=== PATIENT | female | born 1945 | race Caucasian/White ===

== ENCOUNTER 2020-03-04 15:02 | Observation (INO) ==
[2020-03-04 17:13] LABS: Basophils % 0.3 %; Eosinophils # 0.3 K/mcL (0.0-0.6); Eosinophils % 2.1 %; Hematocrit 41.7 % (35.3-44.9); Hemoglobin 13.3 g/dL (11.5-15.4); Immature Granulocytes % 0.6 % (0-4); Lymphocytes # 1.3 K/mcL (0.6-4.6); Lymphocytes % 9.6 %; Mean Corpuscular HGB Conc 31.9 g/dL (31.6-35.5); Mean Corpuscular Hemoglobin 26.3 pg (28.0-33.3); Mean Corpuscular Volume 82.6 fL (83.0-100.0); Mean Platelet Volume 10.7 fL (9.4-12.4); Monocytes # 1.2 K/mcL (0.0-1.3); Neutrophils # 10.3 K/mcL (1.6-8.9); Platelet Count 301 K/mcL (140-400); Red Blood Count 5.05 M/mcL (3.82-4.97); Red Cell Distribution Width 15.1 % (11.5-14.5); Segmented Neutrophils % 78.4 %; White Blood Count 13.2 K/mcL (4.3-11.1)
[2020-03-04 17:33] LABS: BUN/Creatinine Ratio 24 (6-26); Blood Urea Nitrogen 21 mg/dL (8-23); Calcium 10.1 mg/dL (8.6-10.3); Carbon Dioxide 28 mEq/L (23-29); Chloride 106 mEq/L (98-107); Glucose 76 mg/dL (70-105); Osmolality,Calculated 296 (280-300); Potassium 3.2 mEq/L (3.5-5.1); Sodium 142 mEq/L (136-145); eGFR For African Americans > 60 (> 60); eGFR For Non-African Americans > 60 (> 60)
[2020-03-04 17:37] LABS: Troponin I 0.04 ng/mL (< 0.04)
[2020-03-04] MEDS ORDERED: Furosemide 20 MG/2 ML VIAL IVP ONE (18:11)
[2020-03-04] MEDS ORDERED: Mag Hydrox/Al Hydrox/Simeth 30 ML UDC PO PRN (18:22)
[2020-03-04] MEDS ORDERED: Naloxone 0.4 MG/ML INJ IVP PRN (18:22)
[2020-03-04] MEDS ORDERED: Ondansetron ODT 4 MG TAB.RAPDIS SL PRN (18:22)
[2020-03-04] MEDS ORDERED: D5% in Water 1,000 ML IVC PRN (18:22)
[2020-03-04] MEDS ORDERED: *HR* Dextrose 50 % in Water (Vial) 50 ML VIAL IVP PRN (18:22)
[2020-03-04] MEDS ORDERED: Dextrose Gel 15 GM/37.5 ML TUBE PO PRN ×2 (18:22)
[2020-03-04] MEDS ORDERED: Acetaminophen 325 MG TABLET PO PRN (18:22)
[2020-03-04] MEDS ORDERED: MOM Conc 10 ML UD.LIQ PO PRN (18:22)
[2020-03-04] MEDS: Insulin LISPRO 300 UNITS/3 ML VIAL SQ SCH (21:58)
[2020-03-04] MEDS: Cholestyramine 4 GM POWD.PACK PO SCH (22:00)
[2020-03-04] MEDS: Insulin NPH/REG 70/30 100 UNIT/ML (x5UNIT) SQ SCH (22:00)
[2020-03-05] MEDS: *HR* Enoxaparin 40 MG/0.4 ML SYRINGE SQ SCH (05:00)
[2020-03-05 05:37] LABS: Hemoglobin 12.7 g/dL (11.5-15.4); Mean Corpuscular HGB Conc 31.8 g/dL (31.6-35.5); Mean Corpuscular Hemoglobin 26.5 pg (28.0-33.3); Mean Corpuscular Volume 83.3 fL (83.0-100.0); Mean Platelet Volume 10.8 fL (9.4-12.4); Platelet Count 258 K/mcL (140-400); White Blood Count 12.1 K/mcL (4.3-11.1)
[2020-03-05 05:58] LABS: BUN/Creatinine Ratio 22 (6-26); Blood Urea Nitrogen 20 mg/dL (8-23); Calcium 9.6 mg/dL (8.6-10.3); Carbon Dioxide 27 mEq/L (23-29); Chloride 102 mEq/L (98-107); Glucose 140 mg/dL (70-105); Magnesium 1.8 mg/dL (1.6-2.6); Osmolality,Calculated 293 (280-300); Potassium 3.1 mEq/L (3.5-5.1); Sodium 139 mEq/L (136-145); eGFR For African Americans > 60 (> 60); eGFR For Non-African Americans 59 (> 60)
[2020-03-05] MEDS: amLODIPine 5 MG TABLET PO SCH (08:10)
[2020-03-05] MEDS: Insulin NPH/REG 70/30 100 UNIT/ML (x5UNIT) SQ SCH ×2 (08:10→16:04)
[2020-03-05] MEDS: Cholestyramine 4 GM POWD.PACK PO SCH ×2 (08:10→21:00)
[2020-03-05] MEDS: Aspirin 81 MG TAB.CHEW PO SCH (08:10)
[2020-03-05] MEDS: Losartan/HCTZ 50-12.5 TABLET PO SCH (08:11)
[2020-03-05] MEDS: Insulin LISPRO 300 UNITS/3 ML VIAL SQ SCH ×4 (08:45→21:24)
[2020-03-05] MEDS ORDERED: Furosemide 20 MG/2 ML VIAL IVP ONE (09:00)
[2020-03-05] MEDS ORDERED: Melatonin 3 MG TABLET PO PRN (21:28)
[2020-03-05] MEDS: Benzonatate 100 MG CAPSULE PO PRN (23:26)
[2020-03-06 02:11] LABS: Basophils # 0.1 K/mcL (0.0-0.2); Basophils % 0.4 %; Eosinophils # 0.3 K/mcL (0.0-0.6); Eosinophils % 2.2 %; Hematocrit 40.5 % (35.3-44.9); Hemoglobin 12.8 g/dL (11.5-15.4); Immature Granulocytes % 0.5 % (0-4); Lymphocytes % 7.4 %; Mean Corpuscular HGB Conc 31.6 g/dL (31.6-35.5); Mean Corpuscular Hemoglobin 26.6 pg (28.0-33.3); Mean Corpuscular Volume 84.2 fL (83.0-100.0); Mean Platelet Volume 10.6 fL (9.4-12.4); Monocytes # 1.1 K/mcL (0.0-1.3); Monocytes % 8.3 %; Neutrophils # 10.7 K/mcL (1.6-8.9); Platelet Count 245 K/mcL (140-400); Red Blood Count 4.81 M/mcL (3.82-4.97); Segmented Neutrophils % 81.2 %; White Blood Count 13.2 K/mcL (4.3-11.1)
[2020-03-06 02:35] LABS: BUN/Creatinine Ratio 23 (6-26); Blood Urea Nitrogen 22 mg/dL (8-23); Calcium 9.3 mg/dL (8.6-10.3); Carbon Dioxide 24 mEq/L (23-29); Chloride 101 mEq/L (98-107); Glucose 147 mg/dL (70-105); Osmolality,Calculated 288 (280-300); Potassium 3.5 mEq/L (3.5-5.1); Sodium 136 mEq/L (136-145); eGFR For African Americans > 60 (> 60); eGFR For Non-African Americans 56 (> 60)
[2020-03-06] MEDS: *HR* Enoxaparin 40 MG/0.4 ML SYRINGE SQ SCH (05:04)
[2020-03-06] MEDS: Losartan/HCTZ 50-12.5 TABLET PO SCH (08:17)
[2020-03-06] MEDS: Cholestyramine 4 GM POWD.PACK PO SCH ×2 (08:17→20:52)
[2020-03-06] MEDS: amLODIPine 5 MG TABLET PO SCH (08:17)
[2020-03-06] MEDS: Aspirin 81 MG TAB.CHEW PO SCH (08:18)
[2020-03-06] MEDS: Insulin NPH/REG 70/30 100 UNIT/ML (x5UNIT) SQ SCH ×2 (08:18→17:33)
[2020-03-06] MEDS: Insulin LISPRO 300 UNITS/3 ML VIAL SQ SCH ×4 (08:42→21:01)
[2020-03-06] MEDS ORDERED: Furosemide 20 MG/2 ML VIAL IVP SCH (09:00)
[2020-03-07 01:14] LABS: Basophils # 0.1 K/mcL (0.0-0.2); Basophils % 0.5 %; Eosinophils # 0.3 K/mcL (0.0-0.6); Eosinophils % 2.5 %; Hematocrit 42.4 % (35.3-44.9); Hemoglobin 13.7 g/dL (11.5-15.4); Lymphocytes # 1.3 K/mcL (0.6-4.6); Lymphocytes % 10.4 %; Mean Corpuscular HGB Conc 32.3 g/dL (31.6-35.5); Mean Corpuscular Hemoglobin 26.5 pg (28.0-33.3); Neutrophils # 9.8 K/mcL (1.6-8.9); Platelet Count 290 K/mcL (140-400); Red Blood Count 5.17 M/mcL (3.82-4.97); Segmented Neutrophils % 77.6 %; White Blood Count 12.5 K/mcL (4.3-11.1)
[2020-03-07 01:25] LABS: BUN/Creatinine Ratio 26 (6-26); Blood Urea Nitrogen 28 mg/dL (8-23); Calcium 9.7 mg/dL (8.6-10.3); Carbon Dioxide 25 mEq/L (23-29); Chloride 101 mEq/L (98-107); Glucose 125 mg/dL (70-105); Osmolality,Calculated 289 (280-300); Sodium 136 mEq/L (136-145); eGFR For African Americans > 60 (> 60); eGFR For Non-African Americans 51 (> 60)
[2020-03-07] MEDS: *HR* Enoxaparin 40 MG/0.4 ML SYRINGE SQ SCH (06:22)
[2020-03-07] MEDS: Insulin LISPRO 300 UNITS/3 ML VIAL SQ SCH ×3 (09:16→16:03)
[2020-03-07] MEDS: Aspirin 81 MG TAB.CHEW PO SCH (09:29)
[2020-03-07] MEDS: Cholestyramine 4 GM POWD.PACK PO SCH ×2 (09:29→19:51)
[2020-03-07] MEDS: amLODIPine 5 MG TABLET PO SCH (09:29)
[2020-03-07] MEDS: Furosemide 40 MG TABLET PO SCH (09:29)
[2020-03-07] MEDS: Losartan/HCTZ 50-12.5 TABLET PO SCH (09:29)
[2020-03-07] MEDS: Insulin NPH/REG 70/30 100 UNIT/ML (x5UNIT) SQ SCH ×2 (09:30→16:04)
[2020-03-07] MEDS ORDERED: Insulin LISPRO 300 UNITS/3 ML VIAL SQ SCH (14:15)
[2020-03-07] MEDS: Benzonatate 100 MG CAPSULE PO PRN (19:55)
[2020-03-08] MEDS ORDERED: *HR* Labetalol 20 MG/4 ML SYRINGE IVP ONE (01:08)
[2020-03-08] MEDS: *HR* Enoxaparin 40 MG/0.4 ML SYRINGE SQ SCH (05:24)
[2020-03-08] MEDS: Insulin LISPRO 300 UNITS/3 ML VIAL SQ SCH ×2 (07:39→11:22)
[2020-03-08] MEDS: Insulin NPH/REG 70/30 100 UNIT/ML (x5UNIT) SQ SCH (07:47)
[2020-03-08] MEDS: Aspirin 81 MG TAB.CHEW PO SCH (07:48)
[2020-03-08] MEDS: Losartan/HCTZ 50-12.5 TABLET PO SCH (07:49)
[2020-03-08] MEDS: Cholestyramine 4 GM POWD.PACK PO SCH (07:50)
[2020-03-08] MEDS: Furosemide 40 MG TABLET PO SCH (07:50)
[2020-03-08] MEDS: amLODIPine 5 MG TABLET PO SCH (07:50)
[2020-03-08 10:53] VITALS: BP 161/78
== END 2020-03-08 15:27 | disposition home or self-care (01) ==
LOC: 2NENU 15:02 → EMEROOARM 15:02 → SUATTDRO 20:07 → 2NENU 21:33 → 2ANU 03-06 22:24
PROVIDERS: ADMIT Internal Medicine; ATTEND Internal Medicine

== ENCOUNTER 2022-01-23 19:59 | Observation (INO) ==
[2022-01-23 20:49] LABS: Basophils # 0.1 K/mcL (0.0-0.2); Basophils % 0.6 %; Eosinophils # 0.1 K/mcL (0.0-0.6); Eosinophils % 1.5 %; Hemoglobin 12.7 g/dL (11.5-15.4); Lymphocytes # 0.7 K/mcL (0.6-4.6); Mean Corpuscular HGB Conc 31.8 g/dL (31.6-35.5); Mean Corpuscular Hemoglobin 26.1 pg (28.0-33.3); Mean Corpuscular Volume 82.1 fL (83.0-100.0); Mean Platelet Volume 10.5 fL (9.4-12.4); Monocytes # 0.8 K/mcL (0.0-1.3); Monocytes % 8.9 %; Neutrophils # 7.3 K/mcL (1.6-8.9); Platelet Count 190 K/mcL (140-400); Red Blood Count 4.87 M/mcL (3.82-4.97); Red Cell Distribution Width 17.2 % (11.5-14.5); White Blood Count 9.1 K/mcL (4.3-11.1)
[2022-01-23 20:58] LABS: INR 1.1; Prothrombin Time 12.2 Seconds (9.4-12.1)
[2022-01-23 21:01] LABS: Activated Partial Thrombo Time 28.6 Seconds (26.0-36.0)
[2022-01-23 21:08] LABS: Potassium 5.1 mEq/L (3.5-5.1)
[2022-01-23] MEDS ORDERED: *HR* Heparin 5,000 UNIT/ML VIAL IVP PRN ×2 (22:21)
[2022-01-23] MEDS ORDERED: *HR* Heparin 5,000 UNIT/ML VIAL IVP ONE (22:21)
[2022-01-23 22:46] LABS: Heparin anti-factor XA UFH < 0.04 IU/mL (0.30-0.70)
[2022-01-23 22:47] LABS: INR 1.1; Prothrombin Time 12.1 Seconds (9.4-12.1)
[2022-01-23] MEDS: Heparin 25,000UNIT/250ML 1/2NS 25,000 UNIT/250 ML IV.SOLN IVC SCH (22:53)
[2022-01-23 23:12] LABS: Hematocrit 37.8 % (35.3-44.9); Hemoglobin 12.1 g/dL (11.5-15.4); Mean Corpuscular Hemoglobin 26.4 pg (28.0-33.3); Mean Corpuscular Volume 82.4 fL (83.0-100.0); Platelet Count 224 K/mcL (140-400); Red Blood Count 4.59 M/mcL (3.82-4.97); Red Cell Distribution Width 17.2 % (11.5-14.5); White Blood Count 10.8 K/mcL (4.3-11.1)
[2022-01-23] MEDS ORDERED: 0.9 % Sodium Chloride 1,000 ML IVC SCH (23:45)
[2022-01-23] MEDS ORDERED: Naloxone 0.4 MG/ML INJ IVP PRN (23:55)
[2022-01-23] MEDS ORDERED: Acetaminophen 325 MG TABLET PO PRN (23:55)
[2022-01-23] MEDS ORDERED: Melatonin 3 MG TABLET PO PRN (23:55)
[2022-01-23] MEDS ORDERED: Ondansetron 4 MG/2 ML VIAL IVP PRN (23:55)
[2022-01-24] MEDS ORDERED: Dextrose 4 GM Chewable Tablets PO PRN ×2 (00:16)
[2022-01-24] MEDS ORDERED: *HR* Dextrose 50 % in Water (Syg) 50 ML SYRINGE IVP PRN (00:16)
[2022-01-24] MEDS ORDERED: D5% in Water 1,000 ML IVC PRN (00:16)
[2022-01-24 00:22] LABS: D-Dimer 16119 ng/mLFEU (0-500)
[2022-01-24] MEDS: Insulin LISPRO 300 UNITS/3 ML VIAL SUBQ SCH ×4 (00:29→16:10)
[2022-01-24 01:38] LABS: Calcium 9.6 mg/dL (8.6-10.3); Potassium 4.5 mEq/L (3.5-5.1)
[2022-01-24] MEDS: Clindamycin 600 MG/50 ML 600 MG/50 ML IV.SOLN IVPB SCH ×3 (07:16→21:55)
[2022-01-24] MEDS: Heparin 25,000UNIT/250ML 1/2NS 25,000 UNIT/250 ML IV.SOLN IVC SCH (21:56)
[2022-01-25] MEDS: Clindamycin 600 MG/50 ML 600 MG/50 ML IV.SOLN IVPB SCH ×3 (06:01→21:41)
[2022-01-25] MEDS ORDERED: Fluticasone Propionate Nasal 50 MCG/SPRAY BOTTLE NS PRN (07:20)
[2022-01-25 08:46] LABS: Calcium 9.3 mg/dL (8.6-10.3); Potassium 4.7 mEq/L (3.5-5.1)
[2022-01-25] MEDS: Spironolactone 25 MG TABLET PO SCH (09:31)
[2022-01-25] MEDS: Metoprolol XL (24 HR) Succ 50 MG TAB.ER.24H PO SCH (09:31)
[2022-01-25] MEDS: Lactobacillus 1 EACH CAP.SPRINK PO SCH (09:31)
[2022-01-25] MEDS: amLODIPine 5 MG TABLET PO SCH (09:31)
[2022-01-25] MEDS: Aspirin 81 MG TAB.CHEW PO SCH (09:31)
[2022-01-25] MEDS: Insulin LISPRO 300 UNITS/3 ML VIAL SUBQ SCH ×3 (09:32→17:14)
[2022-01-25] MEDS: Apixaban 5 MG TABLET PO SCH ×2 (13:47→21:41)
[2022-01-26 01:45] LABS: Calcium 9.5 mg/dL (8.6-10.3)
[2022-01-26] MEDS: Clindamycin 600 MG/50 ML 600 MG/50 ML IV.SOLN IVPB SCH (05:25)
[2022-01-26] MEDS: Metoprolol XL (24 HR) Succ 50 MG TAB.ER.24H PO SCH (08:01)
[2022-01-26] MEDS: Spironolactone 25 MG TABLET PO SCH (08:02)
[2022-01-26] MEDS: Insulin LISPRO 300 UNITS/3 ML VIAL SUBQ SCH ×2 (08:02→11:41)
[2022-01-26] MEDS: Lactobacillus 1 EACH CAP.SPRINK PO SCH (08:02)
[2022-01-26] MEDS: Aspirin 81 MG TAB.CHEW PO SCH (08:02)
[2022-01-26] MEDS: Apixaban 5 MG TABLET PO SCH (08:02)
[2022-01-26] MEDS: amLODIPine 5 MG TABLET PO SCH (08:02)
[2022-01-26 12:43] VITALS: BP 147/83; PULSE 69; TEMP 98.6; O2SAT 96
== END 2022-01-26 15:27 | disposition home health service (06) ==
LOC: 2ANU 19:59 → EMEROOARM 19:59 → 2ANU 23:26
PROVIDERS: ADMIT Student in an Organized Health Care Education/Training Program; ATTEND Student in an Organized Health Care Education/Training Program

== ENCOUNTER 2022-02-07 10:30 | Inpatient (IN) ==
[2022-02-07 11:58] LABS: Basophils % 0.5 %; Eosinophils # 0.1 K/mcL (0.0-0.6); Eosinophils % 1.6 %; Hematocrit 42.1 % (35.3-44.9); Lymphocytes # 0.7 K/mcL (0.6-4.6); Lymphocytes % 8.4 %; Mean Corpuscular HGB Conc 30.9 g/dL (31.6-35.5); Mean Corpuscular Hemoglobin 26.3 pg (28.0-33.3); Mean Corpuscular Volume 85.1 fL (83.0-100.0); Mean Platelet Volume 10.7 fL (9.4-12.4); Monocytes # 0.6 K/mcL (0.0-1.3); Monocytes % 7.4 %; Neutrophils # 6.7 K/mcL (1.6-8.9); Platelet Count 331 K/mcL (140-400); Red Blood Count 4.95 M/mcL (3.82-4.97); Red Cell Distribution Width 16.4 % (11.5-14.5); Segmented Neutrophils % 81.1 %; White Blood Count 8.3 K/mcL (4.3-11.1)
[2022-02-07 12:06] LABS: INR 1.7; Prothrombin Time 19.1 Seconds (9.4-12.1)
[2022-02-07 12:08] LABS: Activated Partial Thrombo Time 40.9 Seconds (26.0-36.0)
[2022-02-07 12:14] LABS: Calcium 10.7 mg/dL (8.6-10.3); Potassium 4.5 mEq/L (3.5-5.1)
[2022-02-07] MEDS ORDERED: *HR* Heparin 5,000 UNIT/ML VIAL IVP PRN (13:30)
[2022-02-07] MEDS ORDERED: Heparin 25,000UNIT/250ML 1/2NS 25,000 UNIT/250 ML IV.SOLN IVC SCH (13:30)
[2022-02-07] MEDS ORDERED: Naloxone 0.4 MG/ML INJ IVP PRN (13:39)
[2022-02-07] MEDS ORDERED: Dextrose Gel 15 GM/37.5 ML TUBE PO PRN ×2 (13:40)
[2022-02-07] MEDS ORDERED: D5% in Water 1,000 ML IVC PRN ×2 (13:40→13:54)
[2022-02-07] MEDS ORDERED: *HR* Dextrose 50 % in Water (Syg) 50 ML SYRINGE IVP PRN (13:40)
[2022-02-07] MEDS ORDERED: 0.9 % Sodium Chloride 1,000 ML IVC SCH (13:45)
[2022-02-07] MEDS: Heparin 25,000UNIT/250ML 1/2NS 25,000 UNIT/250 ML IV.SOLN IVC SCH (13:54)
[2022-02-07] MEDS ORDERED: Fluticasone Propionate Nasal 50 MCG/SPRAY BOTTLE NS PRN (14:25)
[2022-02-07] MEDS ORDERED: *HR* HYDROcodone/Acet 5/325 mg TABLET PO PRN (14:42)
[2022-02-07] MEDS: 0.9 % Sodium Chloride 1,000 ML IVC SCH (16:39)
[2022-02-07] MEDS: Piperacillin/Tazobactam 3.375 GM in 0.9 % Sodium Chloride Mini Bag 100 ML IVPB SCH (16:40)
[2022-02-07 16:48] LABS: Hematocrit 41.1 % (35.3-44.9); Hemoglobin 12.6 g/dL (11.5-15.4); Mean Corpuscular HGB Conc 30.7 g/dL (31.6-35.5); Mean Corpuscular Volume 84.7 fL (83.0-100.0); Mean Platelet Volume 10.7 fL (9.4-12.4); Platelet Count 367 K/mcL (140-400); Red Blood Count 4.85 M/mcL (3.82-4.97); Red Cell Distribution Width 16.4 % (11.5-14.5); White Blood Count 8.9 K/mcL (4.3-11.1)
[2022-02-07] MEDS: Insulin LISPRO 300 UNITS/3 ML VIAL SUBQ SCH ×2 (16:53→21:25)
[2022-02-07 17:02] LABS: Activated Partial Thrombo Time 56.4 Seconds (26.0-36.0); INR 1.7; Prothrombin Time 19.1 Seconds (9.4-12.1)
[2022-02-07 17:05] LABS: Heparin anti-factor XA UFH > 2.00 IU/mL (0.30-0.70)
[2022-02-07] MEDS: *HR* Heparin 5,000 UNIT/ML VIAL IVP PRN (17:16)
[2022-02-07] MEDS ORDERED: *HR* Warfarin 5 MG TABLET PO ONE (18:00)
[2022-02-07] MEDS ORDERED: Warfarin perPT PO PRN (18:00)
[2022-02-07] MEDS: Doxycycline 100 MG CAPSULE PO SCH (21:34)
[2022-02-08] MEDS: Piperacillin/Tazobactam 3.375 GM in 0.9 % Sodium Chloride Mini Bag 100 ML IVPB SCH ×2 (01:24→08:39)
[2022-02-08 07:06] LABS: Basophils # 0.1 K/mcL (0.0-0.2); Basophils % 0.8 %; Eosinophils # 0.2 K/mcL (0.0-0.6); Eosinophils % 1.9 %; Hematocrit 36.5 % (35.3-44.9); Hemoglobin 11.1 g/dL (11.5-15.4); Immature Granulocytes % 0.8 % (0-4); Lymphocytes # 1.1 K/mcL (0.6-4.6); Lymphocytes % 14.2 %; Mean Corpuscular HGB Conc 30.4 g/dL (31.6-35.5); Mean Corpuscular Hemoglobin 25.5 pg (28.0-33.3); Mean Corpuscular Volume 83.7 fL (83.0-100.0); Mean Platelet Volume 10.8 fL (9.4-12.4); Monocytes # 0.7 K/mcL (0.0-1.3); Monocytes % 8.6 %; Neutrophils # 5.8 K/mcL (1.6-8.9); Platelet Count 298 K/mcL (140-400); Red Blood Count 4.36 M/mcL (3.82-4.97); Red Cell Distribution Width 16.4 % (11.5-14.5); Segmented Neutrophils % 73.7 %; White Blood Count 7.9 K/mcL (4.3-11.1)
[2022-02-08 07:16] LABS: INR 1.4; Prothrombin Time 15.9 Seconds (9.4-12.1)
[2022-02-08] MEDS: 0.9 % Sodium Chloride 1,000 ML IVC SCH ×2 (07:21→17:03)
[2022-02-08 07:47] LABS: Calcium 9.7 mg/dL (8.6-10.3); Magnesium 1.7 mg/dL (1.6-2.6); Phosphorous 3.7 mg/dL (2.7-4.5); Potassium 4.8 mEq/L (3.5-5.1)
[2022-02-08] MEDS: Insulin LISPRO 300 UNITS/3 ML VIAL SUBQ SCH ×4 (08:17→21:54)
[2022-02-08] MEDS: amLODIPine 5 MG TABLET PO SCH (08:18)
[2022-02-08] MEDS: Doxycycline 100 MG CAPSULE PO SCH (08:19)
[2022-02-08] MEDS: Aspirin 81 MG TAB.CHEW PO SCH (08:19)
[2022-02-08] MEDS: Metoprolol XL (24 HR) Succ 50 MG TAB.ER.24H PO SCH (08:19)
[2022-02-08] MEDS: Cyanocobalamin (B-12) 1,000 MCG TABLET PO SCH (08:19)
[2022-02-08] MEDS ORDERED: Furosemide 20 MG TABLET PO SCH (09:00)
[2022-02-08] MEDS ORDERED: Spironolactone 25 MG TABLET PO SCH (09:00)
[2022-02-08] MEDS: Heparin 25,000UNIT/250ML 1/2NS 25,000 UNIT/250 ML IV.SOLN IVC SCH (11:19)
[2022-02-08] MEDS ORDERED: cephALEXin 500 MG CAPSULE PO SCH (13:00)
[2022-02-08] MEDS: cephALEXin 500 MG CAPSULE PO SCH ×2 (15:41→21:58)
[2022-02-08] MEDS ORDERED: *HR* Warfarin 5 MG TABLET PO ONE (18:00)
[2022-02-09 05:43] LABS: INR 1.3; Prothrombin Time 14.7 Seconds (9.4-12.1)
[2022-02-09 06:02] LABS: Calcium 9.7 mg/dL (8.6-10.3); Magnesium 1.5 mg/dL (1.6-2.6); Phosphorous 3.7 mg/dL (2.7-4.5); Potassium 4.2 mEq/L (3.5-5.1)
[2022-02-09] MEDS: 0.9 % Sodium Chloride 1,000 ML IVC SCH ×2 (06:47→20:12)
[2022-02-09] MEDS: Metoprolol XL (24 HR) Succ 50 MG TAB.ER.24H PO SCH (09:00)
[2022-02-09] MEDS: Cyanocobalamin (B-12) 1,000 MCG TABLET PO SCH (09:00)
[2022-02-09] MEDS: cephALEXin 500 MG CAPSULE PO SCH ×2 (09:00→20:13)
[2022-02-09] MEDS: amLODIPine 5 MG TABLET PO SCH (09:00)
[2022-02-09] MEDS: Aspirin 81 MG TAB.CHEW PO SCH (09:00)
[2022-02-09] MEDS: Insulin LISPRO 300 UNITS/3 ML VIAL SUBQ SCH ×4 (09:00→20:14)
[2022-02-09] MEDS: Heparin 25,000UNIT/250ML 1/2NS 25,000 UNIT/250 ML IV.SOLN IVC SCH (09:01)
[2022-02-09 10:58] LABS: Adenovirus F 40/41 PCR Not detected (Not detect); Astrovirus PCR Not detected (Not detect); C.difficile Toxin A/B Gene PCR Not detected (Not detect); Campylobacter by PCR Not detected (Not detect); Cryptosporidium by PCR Not detected (Not detect); Cyclospora cayetanensis PCR Not detected (Not detect); Entamoeba histolytica PCR Not detected (Not detect); Enteroaggregative E.coli(EAEC) Not detected (Not detect); Enteropathogenic E.coli(EPEC) Not detected (Not detect); Enterotoxigenic E.coli (ETEC) Not detected (Not detect); Giardia lamblia PCR Not detected (Not detect); Norovirus GI/GII PCR Not detected (Not detect); Plesiomonas shigelloides PCR Not detected (Not detect); Rotavirus A PCR Not detected (Not detect); Salmonella PCR Not detected (Not detect); Sapovirus PCR Not detected (Not detect); Shig/EnteroinvasiveE coli EIEC Not detected (Not detect); Shigalike tox-prod E coli STEC Not detected (Not detect); Vibrio PCR Not detected (Not detect); Vibrio cholerae PCR Not detected (Not detect); Yersinia enterocolitica PCR Not detected (Not detect)
[2022-02-09] MEDS ORDERED: *HR* Warfarin 7.5 MG TABLET PO ONE (18:00)
[2022-02-09] MEDS: Insulin NPH/REG 70/30 100 UNIT/ML (x5UNIT) SUBQ SCH (20:13)
[2022-02-09] MEDS ORDERED: *HR* Metoprolol 5 MG/5 ML VIAL IVP ONE (22:41)
[2022-02-10 02:45] LABS: INR 1.3; Prothrombin Time 14.2 Seconds (9.4-12.1)
[2022-02-10 02:48] LABS: Calcium 10.2 mg/dL (8.6-10.3); Magnesium 1.7 mg/dL (1.6-2.6); Phosphorous 2.9 mg/dL (2.7-4.5); Potassium 4.3 mEq/L (3.5-5.1)
[2022-02-10] MEDS: *HR* Heparin 5,000 UNIT/ML VIAL IVP PRN (04:07)
[2022-02-10] MEDS: Insulin LISPRO 300 UNITS/3 ML VIAL SUBQ SCH ×4 (09:52→20:35)
[2022-02-10] MEDS: Metoprolol XL (24 HR) Succ 50 MG TAB.ER.24H PO SCH (10:02)
[2022-02-10] MEDS: cephALEXin 500 MG CAPSULE PO SCH ×2 (10:02→20:49)
[2022-02-10] MEDS: Cyanocobalamin (B-12) 1,000 MCG TABLET PO SCH (10:02)
[2022-02-10] MEDS: amLODIPine 5 MG TABLET PO SCH (10:02)
[2022-02-10] MEDS: Aspirin 81 MG TAB.CHEW PO SCH (10:02)
[2022-02-10] MEDS: Insulin NPH/REG 70/30 100 UNIT/ML (x5UNIT) SUBQ SCH ×2 (10:04→20:35)
[2022-02-10] MEDS: 0.9 % Sodium Chloride 1,000 ML IVC SCH ×2 (10:07→23:36)
[2022-02-10] MEDS: Heparin 25,000UNIT/250ML 1/2NS 25,000 UNIT/250 ML IV.SOLN IVC SCH (10:08)
[2022-02-10] MEDS ORDERED: amLODIPine 5 MG TABLET PO ONE (12:56)
[2022-02-10] MEDS ORDERED: *HR* Metoprolol 5 MG/5 ML VIAL IVP ONE (12:57)
[2022-02-10] MEDS ORDERED: *HR* Warfarin 7.5 MG TABLET PO ONE (18:00)
[2022-02-11 02:59] LABS: INR 1.7; Prothrombin Time 18.9 Seconds (9.4-12.1)
[2022-02-11] MEDS: Heparin 25,000UNIT/250ML 1/2NS 25,000 UNIT/250 ML IV.SOLN IVC SCH (06:43)
[2022-02-11] MEDS: Insulin LISPRO 300 UNITS/3 ML VIAL SUBQ SCH ×4 (09:10→20:38)
[2022-02-11] MEDS: cephALEXin 500 MG CAPSULE PO SCH ×2 (09:18→20:37)
[2022-02-11] MEDS: Cyanocobalamin (B-12) 1,000 MCG TABLET PO SCH (09:18)
[2022-02-11] MEDS: Aspirin 81 MG TAB.CHEW PO SCH (09:18)
[2022-02-11] MEDS: Metoprolol XL (24 HR) Succ 50 MG TAB.ER.24H PO SCH (09:18)
[2022-02-11] MEDS: amLODIPine 5 MG TABLET PO SCH (09:19)
[2022-02-11] MEDS: Insulin NPH/REG 70/30 100 UNIT/ML (x5UNIT) SUBQ SCH ×2 (09:19→20:38)
[2022-02-11] MEDS: predniSONE 20 MG TABLET PO SCH (10:38)
[2022-02-11] MEDS: 0.9 % Sodium Chloride 1,000 ML IVC SCH (13:19)
[2022-02-11] MEDS ORDERED: *HR* Warfarin 5 MG TABLET PO ONE (18:00)
[2022-02-12] MEDS: 0.9 % Sodium Chloride 1,000 ML IVC SCH (02:41)
[2022-02-12] MEDS: Heparin 25,000UNIT/250ML 1/2NS 25,000 UNIT/250 ML IV.SOLN IVC SCH (04:40)
[2022-02-12] MEDS: Aspirin 81 MG TAB.CHEW PO SCH (09:06)
[2022-02-12] MEDS: amLODIPine 5 MG TABLET PO SCH (09:06)
[2022-02-12] MEDS: Metoprolol XL (24 HR) Succ 50 MG TAB.ER.24H PO SCH (09:06)
[2022-02-12] MEDS: predniSONE 20 MG TABLET PO SCH (09:07)
[2022-02-12] MEDS: Cyanocobalamin (B-12) 1,000 MCG TABLET PO SCH (09:07)
[2022-02-12] MEDS: cephALEXin 500 MG CAPSULE PO SCH ×2 (09:07→20:13)
[2022-02-12] MEDS: Insulin NPH/REG 70/30 100 UNIT/ML (x5UNIT) SUBQ SCH ×2 (09:12→20:13)
[2022-02-12] MEDS: Insulin LISPRO 300 UNITS/3 ML VIAL SUBQ SCH ×4 (09:14→20:15)
[2022-02-12 09:35] LABS: INR 2.3; Prothrombin Time 25.2 Seconds (9.4-12.1)
[2022-02-12] MEDS ORDERED: Furosemide 40 MG/4 ML VIAL IVP ONE (10:03)
[2022-02-12] MEDS ORDERED: *HR* Warfarin 7.5 MG TABLET PO ONE (18:00)
[2022-02-13 06:17] LABS: INR 2.5; Prothrombin Time 27.6 Seconds (9.4-12.1)
[2022-02-13] MEDS: Insulin LISPRO 300 UNITS/3 ML VIAL SUBQ SCH ×4 (07:40→21:37)
[2022-02-13] MEDS: Furosemide 40 MG TABLET PO SCH (07:57)
[2022-02-13] MEDS: Cyanocobalamin (B-12) 1,000 MCG TABLET PO SCH (07:57)
[2022-02-13] MEDS: amLODIPine 5 MG TABLET PO SCH (07:58)
[2022-02-13] MEDS: Aspirin 81 MG TAB.CHEW PO SCH (07:58)
[2022-02-13] MEDS: cephALEXin 500 MG CAPSULE PO SCH ×2 (07:58→21:36)
[2022-02-13] MEDS: Metoprolol XL (24 HR) Succ 50 MG TAB.ER.24H PO SCH (07:58)
[2022-02-13] MEDS: predniSONE 20 MG TABLET PO SCH (08:00)
[2022-02-13] MEDS: Insulin NPH/REG 70/30 100 UNIT/ML (x5UNIT) SUBQ SCH ×2 (09:27→21:36)
[2022-02-13] MEDS ORDERED: Metoprolol XL (24 HR) Succ 50 MG TAB.ER.24H PO ONE (11:37)
[2022-02-13] MEDS ORDERED: *HR* Warfarin 5 MG TABLET PO ONE (18:00)
[2022-02-14 04:59] LABS: INR 3.1; Prothrombin Time 34.1 Seconds (9.4-12.1)
[2022-02-14] MEDS: amLODIPine 5 MG TABLET PO SCH (08:34)
[2022-02-14] MEDS: Aspirin 81 MG TAB.CHEW PO SCH (08:34)
[2022-02-14] MEDS: cephALEXin 500 MG CAPSULE PO SCH ×2 (08:34→23:31)
[2022-02-14] MEDS: predniSONE 20 MG TABLET PO SCH (08:34)
[2022-02-14] MEDS: Metoprolol XL (24 HR) Succ 50 MG TAB.ER.24H PO SCH (08:34)
[2022-02-14] MEDS: Furosemide 40 MG TABLET PO SCH (08:34)
[2022-02-14] MEDS: Insulin NPH/REG 70/30 100 UNIT/ML (x5UNIT) SUBQ SCH ×2 (08:34→23:19)
[2022-02-14] MEDS: Cyanocobalamin (B-12) 1,000 MCG TABLET PO SCH (08:34)
[2022-02-14] MEDS: Insulin LISPRO 300 UNITS/3 ML VIAL SUBQ SCH ×4 (08:37→23:18)
[2022-02-14] MEDS ORDERED: Furosemide 20 MG/2 ML VIAL IVP ONE (15:43)
[2022-02-14] MEDS: Albumin 25% 25gram/100mL 25 GM/100 ML IV.SOLN IVPB SCH (17:28)
[2022-02-14] MEDS: Azithromycin 250 MG TABLET PO SCH (17:35)
[2022-02-14] MEDS ORDERED: *HR* Warfarin 2.5 MG TABLET PO ONE (18:00)
[2022-02-15] MEDS: Albumin 25% 25gram/100mL 25 GM/100 ML IV.SOLN IVPB SCH ×3 (01:33→16:30)
[2022-02-15 05:35] LABS: Basophils # 0.1 K/mcL (0.0-0.2); Basophils % 0.5 %; Eosinophils % 0.2 %; Hematocrit 37.9 % (35.3-44.9); Hemoglobin 11.7 g/dL (11.5-15.4); Immature Granulocytes % 1.7 % (0-4); Lymphocytes # 0.9 K/mcL (0.6-4.6); Lymphocytes % 7.1 %; Mean Corpuscular HGB Conc 30.9 g/dL (31.6-35.5); Mean Corpuscular Hemoglobin 25.3 pg (28.0-33.3); Mean Platelet Volume 10.8 fL (9.4-12.4); Monocytes # 0.9 K/mcL (0.0-1.3); Monocytes % 7.2 %; Platelet Count 305 K/mcL (140-400); Red Blood Count 4.62 M/mcL (3.82-4.97); Red Cell Distribution Width 16.3 % (11.5-14.5); Segmented Neutrophils % 83.3 %
[2022-02-15 05:36] LABS: Neutrophils # 10.8 K/mcL (1.6-8.9); White Blood Count 12.9 K/mcL (4.3-11.1)
[2022-02-15 05:40] LABS: Prothrombin Time 33.3 Seconds (9.4-12.1)
[2022-02-15 05:58] LABS: Calcium 10.6 mg/dL (8.6-10.3); Potassium 4.5 mEq/L (3.5-5.1)
[2022-02-15] MEDS: Insulin LISPRO 300 UNITS/3 ML VIAL SUBQ SCH ×4 (07:44→20:32)
[2022-02-15] MEDS ORDERED: Furosemide 20 MG/2 ML VIAL IVP ONE (08:25)
[2022-02-15] MEDS: amLODIPine 5 MG TABLET PO SCH (08:47)
[2022-02-15] MEDS: cephALEXin 500 MG CAPSULE PO SCH (08:47)
[2022-02-15] MEDS: Metoprolol XL (24 HR) Succ 50 MG TAB.ER.24H PO SCH (08:47)
[2022-02-15] MEDS: Aspirin 81 MG TAB.CHEW PO SCH (08:47)
[2022-02-15] MEDS: predniSONE 20 MG TABLET PO SCH (08:47)
[2022-02-15] MEDS: Cyanocobalamin (B-12) 1,000 MCG TABLET PO SCH (08:47)
[2022-02-15] MEDS: Azithromycin 250 MG TABLET PO SCH (08:47)
[2022-02-15] MEDS: Insulin NPH/REG 70/30 100 UNIT/ML (x5UNIT) SUBQ SCH ×2 (09:36→20:33)
[2022-02-15] MEDS ORDERED: Iopamidol - 370 500 ML MLS IVP ONE (15:21)
[2022-02-15] MEDS ORDERED: levoFLOXacin 750 MG TABLET PO SCH (15:30)
[2022-02-15] MEDS: 0.9 % Sodium Chloride 1,000 ML IVC SCH (16:29)
[2022-02-15] MEDS ORDERED: *HR* Warfarin 5 MG TABLET PO ONE (18:00)
[2022-02-16] MEDS: Albumin 25% 25gram/100mL 25 GM/100 ML IV.SOLN IVPB SCH ×3 (00:42→16:04)
[2022-02-16 06:27] LABS: INR 3.3; Prothrombin Time 36.6 Seconds (9.4-12.1)
[2022-02-16] MEDS: 0.9 % Sodium Chloride 1,000 ML IVC SCH ×3 (07:04→16:04)
[2022-02-16] MEDS: Azithromycin 250 MG TABLET PO SCH (07:58)
[2022-02-16] MEDS: amLODIPine 5 MG TABLET PO SCH (07:58)
[2022-02-16] MEDS: Metoprolol XL (24 HR) Succ 50 MG TAB.ER.24H PO SCH (07:59)
[2022-02-16] MEDS: Aspirin 81 MG TAB.CHEW PO SCH (07:59)
[2022-02-16] MEDS: Cyanocobalamin (B-12) 1,000 MCG TABLET PO SCH (07:59)
[2022-02-16] MEDS: Insulin LISPRO 300 UNITS/3 ML VIAL SUBQ SCH ×4 (07:59→20:07)
[2022-02-16] MEDS: Insulin NPH/REG 70/30 100 UNIT/ML (x5UNIT) SUBQ SCH ×2 (08:00→20:07)
[2022-02-16 09:34] LABS: Calcium 10.5 mg/dL (8.6-10.3); Potassium 4.4 mEq/L (3.5-5.1)
[2022-02-16] MEDS ORDERED: *HR* Warfarin 2.5 MG TABLET PO ONE (18:00)
[2022-02-17] MEDS: Albumin 25% 25gram/100mL 25 GM/100 ML IV.SOLN IVPB SCH ×2 (01:37→10:56)
[2022-02-17 06:43] LABS: INR 2.9; Prothrombin Time 32.5 Seconds (9.4-12.1)
[2022-02-17 07:05] LABS: Calcium 10.4 mg/dL (8.6-10.3); Potassium 4.5 mEq/L (3.5-5.1)
[2022-02-17] MEDS ORDERED: levoFLOXacin 500 MG TABLET PO SCH (09:00)
[2022-02-17] MEDS: Insulin LISPRO 300 UNITS/3 ML VIAL SUBQ SCH ×4 (09:44→20:22)
[2022-02-17] MEDS: Insulin NPH/REG 70/30 100 UNIT/ML (x5UNIT) SUBQ SCH ×2 (09:44→20:22)
[2022-02-17] MEDS: amLODIPine 5 MG TABLET PO SCH (10:54)
[2022-02-17] MEDS: Metoprolol XL (24 HR) Succ 50 MG TAB.ER.24H PO SCH (10:54)
[2022-02-17] MEDS: Aspirin 81 MG TAB.CHEW PO SCH (10:54)
[2022-02-17] MEDS: Cyanocobalamin (B-12) 1,000 MCG TABLET PO SCH (10:55)
[2022-02-17] MEDS: Azithromycin 250 MG TABLET PO SCH (10:55)
[2022-02-17] MEDS: 0.9 % Sodium Chloride 1,000 ML IVC SCH (10:56)
[2022-02-17] MEDS: Furosemide 40 MG TABLET PO SCH (11:04)
[2022-02-17] MEDS ORDERED: *HR* Warfarin 3 MG TABLET PO ONE (18:00)
[2022-02-18] MEDS: Insulin LISPRO 300 UNITS/3 ML VIAL SUBQ SCH ×4 (07:27→21:23)
[2022-02-18 07:32] LABS: INR 2.6; Prothrombin Time 29.1 Seconds (9.4-12.1)
[2022-02-18] MEDS: Cyanocobalamin (B-12) 1,000 MCG TABLET PO SCH (08:46)
[2022-02-18] MEDS: Metoprolol XL (24 HR) Succ 50 MG TAB.ER.24H PO SCH (08:46)
[2022-02-18] MEDS: Insulin NPH/REG 70/30 100 UNIT/ML (x5UNIT) SUBQ SCH ×2 (08:46→21:28)
[2022-02-18] MEDS: Furosemide 40 MG TABLET PO SCH (08:47)
[2022-02-18] MEDS: Aspirin 81 MG TAB.CHEW PO SCH (08:47)
[2022-02-18] MEDS: amLODIPine 5 MG TABLET PO SCH (08:47)
[2022-02-18] MEDS ORDERED: *HR* Warfarin 5 MG TABLET PO ONE (18:00)
[2022-02-19 05:36] LABS: INR 2.4; Prothrombin Time 26.1 Seconds (9.4-12.1)
[2022-02-19] MEDS: Insulin LISPRO 300 UNITS/3 ML VIAL SUBQ SCH ×3 (07:29→16:59)
[2022-02-19] MEDS: Metoprolol XL (24 HR) Succ 50 MG TAB.ER.24H PO SCH (08:14)
[2022-02-19] MEDS: Cyanocobalamin (B-12) 1,000 MCG TABLET PO SCH (08:14)
[2022-02-19] MEDS: Aspirin 81 MG TAB.CHEW PO SCH (08:14)
[2022-02-19] MEDS: amLODIPine 5 MG TABLET PO SCH (08:14)
[2022-02-19] MEDS: Insulin NPH/REG 70/30 100 UNIT/ML (x5UNIT) SUBQ SCH (08:14)
[2022-02-19] MEDS: Furosemide 40 MG TABLET PO SCH (08:14)
[2022-02-19 11:49] VITALS: TEMP 98.1
[2022-02-19 14:45] VITALS: BP 124/78; PULSE 69; O2SAT 95
[2022-02-19 17:09] LABS: Adenovirus Not Detected (Not Detect); Bordetella Pertussis Not Detected (Not Detect); Chlamydophila pneumoniae Not Detected (Not Detect); Coronavirus 229E Not Detected (Not Detect); Coronavirus HKU1 Not Detected (Not Detect); Coronavirus NL63 Not Detected (Not Detect); Coronavirus OC43 Not Detected (Not Detect); Human Metapneumovirus Not Detected (Not Detect); Human Rhinovirus/Enterovirus Not Detected (Not Detect); Influenza A Subtype 2009 H1 Not Detected (Not Detect); Influenza B Not Detected (Not Detect); Mycoplasma pneumoniae Not Detected (Not Detect); Parainfluenza Virus 1 Not Detected (Not Detect); Parainfluenza Virus 2 Not Detected (Not Detect); Parainfluenza Virus 3 Not Detected (Not Detect); Parainfluenza Virus 4 Not Detected (Not Detect); Respiratory Syncytial Virus Not Detected (Not Detect); SARS-CoV-2 Not Detected (Not Detect)
== END 2022-02-19 19:10 | DRG 299 ==
LOC: 3BNU 10:30 → EMEROOARM 10:30 → SUATTDRO 13:33 → 3BNU 14:59 → SUATTDRO 02-09 09:44 → 3BNU 02-17 23:05
PROVIDERS: ADMIT Internal Medicine; ATTEND Registered Nurse